=== PATIENT | male | born 1980 | race Caucasian/White ===

== ENCOUNTER 2016-11-26 21:57 | Emergency (ER) | payer BC ==
[2016-11-26 22:11] VITALS: BP 125/71; PULSE 86; TEMP 98.1; BMI 30.8
[2016-11-26] MEDS ORDERED: OXYCODONE/APAP 5/325MG COMBO TABLET PO ONE (23:18)
[2016-11-26] MEDS ORDERED: OXYCODONE/APAP 5/325MG COMBO TABLET ONE (23:21)
--- NOTE | 2016-11-27 00:04 | PDOC ---
History of Present Illness <Adriana Aj - Last Filed: 11/27/16 00:04> - General History Source: Patient Exam Limitations: No Limitations - History of Present Illness Initial Comments: 11/27/16 00:08 The patient is a 36 year old male with no significant past medical history, who presents to the emergency department with right shoulder pain s/p mechanical pain for 4 hours. The patient states that he was playing softball at 6:30 pm today when he fell and landed on his right shoulder while running to [employer]. The patient said that initially he did not have shoulder pain and continued to play but when he got home he began to have pain. The patient states that he took an ibuprofen at 9:30 pm to treat the pain with minimal relief of symptoms. The patient denies hitting his head during the fall. The patient denies any history of shoulder surgery. The patient denies fever, chills, and sweats. The patient denies nausea, vomiting, and diarrhea. The patient denies chest pain, cough, and shortness of breath. PCP: Dr. Roberth Garrett [phone] PAST SURGICAL HISTORY: Back surgery ALLERGIES: NKDA <Kamar Adkins - Last Filed: 11/27/16 00:09> - General Chief Complaint: Pain, Acute Stated Complaint: RT SHOULDER PAIN Past History - Past Medical History Other medical history: Denies - Immunization History Immunization Up to Date: No - Psycho/Social/Smoking Cessation Hx Anxiety: No Suicidal Ideation: No Smoking Status: No Smoking History: Never smoked Have you smoked in the past 12 months: No Number of Cigarettes Smoked Daily: 0 Information on smoking cessation initiated: No Hx Alcohol Use: No Drug/Substance Use Hx: No Substance Use Type: Alcohol <Adriana Aj - Last Filed: 11/27/16 00:04> <Kamar Adkins - Last Filed: 11/27/16 00:09> - Past Medical History Allergies/Adverse Reactions: Allergies Allergy/AdvReac Type Severity Reaction Status Date / Time No Known Allergies Allergy Verified 11/26/16 22:11 Home Medications: Ambulatory Orders Cyclobenzaprine HCl [Flexeril] 10 mg PO Q8H PRN #21 tablet 07/11/12 No Home Medications 0 dose .ROUTE UTDICT 07/11/12 Oxycodone HCl/Acetaminophen [Percocet 5-325 mg Tablet] 1 - 2 tab PO Q6H PRN #16 tablet 07/11/12 Ibuprofen [Motrin -] 600 mg PO TID PRN #90 tablet MDD 3 11/27/16 Review of Systems - Review of Systems Able to Perform ROS?: Yes Comments:: 11/27/16 00:08 GENERAL/CONSTITUTIONAL: No fever or chills. No weakness. HEAD, EYES, EARS, NOSE AND THROAT: No change in vision. No ear pain or discharge. No sore throat. GASTROINTESTINAL: No nausea, vomiting, diarrhea or constipation. GENITOURINARY: No dysuria, frequency, or change in urination. CARDIOVASCULAR: No chest pain or shortness of breath. RESPIRATORY: No cough, wheezing, or hemoptysis. MUSCULOSKELETAL: (+) Right shoulder pain. No neck or back pain. SKIN: No rash NEUROLOGIC: No headache, vertigo, loss of consciousness, or change in strength/ sensation. ENDOCRINE: No increased thirst. No abnormal weight change. HEMATOLOGIC/LYMPHATIC: No anemia, easy bleeding, or history of blood clots. ALLERGIC/IMMUNOLOGIC: No hives or skin allergy. <Kamar Adkins - Last Filed: 11/27/16 00:09> *Physical Exam - Vital Signs Last Vital Signs Temp Pulse Resp BP Pulse Ox 98.1 F 86 18 125/71 98 11/26/16 22:08 11/26/16 22:08 11/26/16 22:08 11/26/16 22:08 11/26/16 23:28 <Adriana Aj - Last Filed: 11/27/16 00:04> - Vital Signs Last Vital Signs Temp Pulse Resp BP Pulse Ox 98.1 F 86 18 125/71 98 11/26/16 22:08 11/26/16 22:08 11/26/16 22:08 11/26/16 22:08 11/26/16 23:28 - Physical Exam Comments: 11/27/16 00:08 GENERAL: Awake, alert, and fully oriented, in no acute distress HEAD: No signs of trauma EYES: PERRLA, EOMI, sclera anicteric, conjunctiva clear ENT: Auricles normal inspection, nares patent, Moist mucosa NECK: Normal ROM, supple, no lymphadenopathy, JVD, or masses LUNGS: Breath sounds equal, clear to auscultation bilaterally. No wheezes, and no crackles HEART: Regular rate and rhythm, normal S1 and S2, no murmurs, rubs or gallops ABDOMEN: Soft, nontender, normoactive bowel sounds. No guarding, no rebound. No masses EXTREMITIES: (+) No clavicular tenderness. Right shoulder with tenderness of anterior shoulder, full external and internal range of motion, limitation with abduction no palpable groove, right elbows and right wrist with full range of motion. n/v intact. No clubbing or cyanosis. No cords or erythema. NEUROLOGICAL: Normal speech SKIN: Warm, Dry, normal turgor, no rashes or lesions noted. <Kamar Adkins - Last Filed: 11/27/16 00:09> ED Treatment Course - RADIOLOGY Radiology Studies Ordered: Category Date Time Status SHOULDER-RIGHT [RAD] Stat Radiology 11/26/16 23:19 Taken - Medications Given in the ED: ED Medications Discontinued Medications Generic Name Dose Route Start Last Admin Trade Name Freq PRN Reason Stop Dose Admin Oxycodone/Acetaminophen 1 combo 11/26/16 23:18 11/26/16 23:20 Percocet 5/325 - PO 11/26/16 23:19 1 combo ONCE ONE Administration <Adriana Aj - Last Filed: 11/27/16 00:04> - Medications Given in the ED: ED Medications Discontinued Medications Generic Name Dose Route Start Last Admin Trade Name Freq PRN Reason Stop Dose Admin Oxycodone/Acetaminophen 1 combo 11/26/16 23:18 11/26/16 23:20 Percocet 5/325 - PO 11/26/16 23:19 1 combo ONCE ONE Administration <Kamar Adkins - Last Filed: 11/27/16 00:09> Medical Decision Making - Medical Decision Making 11/27/16 00:02 36 yo male s/p injury to right shoulder earlier today around 6 pm pt ws playing softball, fell while running to the base landed on the shoulder, c/o right sided pain. didn't hurt initially but started to hurt afterward. took motrin for pain around 9:30 pm. no new numbness or tingling. no weakness. no h/ o prior shoulder injury. pain moderate. worse with movement. no elbow or wrist injury no head injury. on exam awake alert lungs clear. heart rrr no mrg. abd soft nt. right shoulder with latera anterior ttp. pain with abduction to 45 deg. full ROM with internal and ext rotation. no groove or deformity noted. elbow / wrist FROM. distally n/ v intact. 2 + rad/ ulnar pulses. no clavicular ttp. no step off. plan : xray r/o fx. dislocation. pain control <Adriana Aj - Last Filed: 11/27/16 00:04> *DC/Admit/Observation/Transfer - Discharge Dispostion Admit: No <Adriana Aj - Last Filed: 11/27/16 00:04> - Attestations Scribe Attestion: 11/27/16 00:08 Documentation prepared by Kamar Adkins, acting as medical claims processor for Adriana Aj MD. <Kamar Adkins - Last Filed: 11/27/16 00:09> Diagnosis at time of Disposition: Shoulder strain - Discharge Dispostion Condition at time of disposition: Fair - Prescriptions Prescriptions: Ibuprofen [Motrin -] 600 mg PO TID PRN #90 tablet MDD 3 PRN Reason: Pain - Referrals Referrals: Roberth Garrett MD [Primary Care Provider] - Francisco Narayanan MD [Staff Physician] - - Patient Instructions Printed Discharge Instructions: Shoulder Sprain Additional Instructions: take ibuprofen 600 mg every 8 hours as needed for pain. follow up with orthopedics as needed. see referral for Dr Narayanan, call to schedule. you can also receive a referral from your primary doctor. you can wear sling, but not for more than 48 hours as this may lead to frozen shoulder and stiffness. ice shoulder to help reduce swelling. return for any problems or concerns.
== END 2016-11-27 00:11 | disposition home or self-care (01) ==
LOC: SUPCPDRO 21:57 → JERFT 21:57 → JER 21:57
DX: S43.491A Other sprain of right shoulder joint, initial encounter (principal); S46.811A Strain of other muscles, fascia and tendons at shoulder and upper arm level, right arm, initial encounter; W18.01XA Striking against sports equipment with subsequent fall, initial encounter; Y93.64 Activity, baseball; Y92.320 Baseball field as the place of occurrence of the external cause; Y99.8 Other external cause status
CPT/HCPCS: 73030-TC-RT; 99284-25

== ENCOUNTER → 2016-12-04 | Emergency (ER) | payer BC ==
[2016-12-04 17:14] VITALS: TEMP 98.3; BMI 33.3
--- NOTE | 2016-12-04 17:32 | PDOC ---
History of Present Illness - General History Source: Patient Exam Limitations: No Limitations - History of Present Illness Initial Comments: CHIEF COMPLAINT: 36 y/o afebrile male with no significant PMH sent in from [facility] for abdominal pain and blood in stool. HISTORY OF PRESENT ILLNESS: The patient states last night he started having abdominal pain. He describes the pain as bloating and intermittent. He states all last night he got up multiple times because he felt pressure to have a BM but all he passed was what he describes as "bloody jelly". He admits he hasn't passed any stool since last night - only the bloody jelly. He went to [facility] today to be evaluated and had a positive occult stool test and they sent him here. He denies f/c, n/v, cough, CP, SOB, back pain, hematuria, dysuria, constipation, diarrhea, smoking history, history of prior abdominal surgery, family history of abdominal or colon cancer. Vital signs on arrival are within normal limits. REVIEW OF SYSTEMS: GENERAL/CONSTITUTIONAL: No fever/chills. No weakness. No weight change. HEAD, EYES, EARS, NOSE AND THROAT: No change in vision. No ear pain or discharge. No sore throat. CARDIOVASCULAR: No chest pain or shortness of breath. RESPIRATORY: No cough, wheezing, or hemoptysis. GASTROINTESTINAL: +abdominal cramping and bloody "jelly" stool. No nausea, vomiting. GENITOURINARY: No dysuria, frequency, or change in urination. MUSCULOSKELETAL: No joint or muscle swelling or pain. No neck or back pain. SKIN: No rash or easy bruising. NEUROLOGIC: No headache, vertigo, loss of consciousness, or loss of sensation. PHYSICAL EXAM: GENERAL: The patient is awake, alert, and fully oriented, in no acute distress. He is a muscular, well appearing, ambulatory male in NAD or obvious discomfort. HEAD: Normal with no signs of trauma. ENT: Pupils equal, round and reactive to light, extraocular movements intact, sclera anicteric, conjunctiva clear. Neck supple. LUNGS: Clear to auscultation bilaterally. Normal excursion. No respiratory distress or use of accessory muscles. CV: RRR, S1/S2, no MRG. Cap refill < 2 sec. ABDOMEN: Soft, non-distended, some TTP of RLQ without rebound, guarding or rigidity. Negative psoas, obturator and heel jar sign. RECTAL: No hemorrhoids appreciated. No masses felt on internal exam. Very faint blood seen around anus and from rectal exam. EXTREMITIES: Normal range of motion, no edema. NEUROLOGICAL: Normal speech, normal gait. CN II-XII grossly intact. PSYCH: Normal mood, normal affect. SKIN: Warm, dry, normal turgor, no rashes or lesions noted. <Nitza Ley - Last Filed: 12/04/16 17:48> <Sia Brown - Last Filed: 12/04/16 22:58> - General Chief Complaint: Pain Stated Complaint: PCP REFERRAL Time Seen by Provider: 12/04/16 17:24 Past History - Past Medical History Other medical history: NONE - Immunization History Immunization Up to Date: No - Psycho/Social/Smoking Cessation Hx Anxiety: No Suicidal Ideation: No Smoking Status: No Smoking History: Never smoked Have you smoked in the past 12 months: No Number of Cigarettes Smoked Daily: 0 Hx Alcohol Use: Yes (SOCIAL) Drug/Substance Use Hx: No Substance Use Type: None <Nitza Ley - Last Filed: 12/04/16 17:48> <Sia Brown - Last Filed: 12/04/16 22:58> - Past Medical History Allergies/Adverse Reactions: Allergies Allergy/AdvReac Type Severity Reaction Status Date / Time No Known Allergies Allergy Verified 12/04/16 17:14 Home Medications: Ambulatory Orders Famotidine [Pepcid -] 40 mg PO DAILY #30 tablet 12/04/16 Ondansetron [Zofran Odt -] 4 mg SL Q6H PRN #24 od.tablet 12/04/16 Oxycodone HCl/Acetaminophen [Percocet 5-325 mg Tablet] 1 tab PO Q6H PRN #28 tablet MDD 4 tab 12/04/16 *Physical Exam - Vital Signs Last Vital Signs Temp Pulse Resp BP Pulse Ox 98.3 F 62 20 145/70 98 12/04/16 17:11 12/04/16 17:11 12/04/16 17:11 12/04/16 17:11 12/04/16 17:11 <Nitza Ley - Last Filed: 12/04/16 17:48> - Vital Signs Last Vital Signs Temp Pulse Resp BP Pulse Ox 98.3 F 62 20 145/70 98 12/04/16 17:11 12/04/16 17:11 12/04/16 17:11 12/04/16 17:11 12/04/16 17:11 <Sia Brown - Last Filed: 12/04/16 22:58> ED Treatment Course - LABORATORY CBC & Chemistry Diagram: 12/04/16 18:10 12/04/16 18:10 - ADDITIONAL ORDERS Additional order review: Laboratory Results 12/04/16 12/04/16 12/04/16 18:17 18:10 18:10 INR 1.20 H Sodium Potassium Chloride Carbon Dioxide Anion Gap BUN Creatinine Creat Clearance w eGFR Random Glucose Lactic Acid Calcium Total Bilirubin AST ALT Alkaline Phosphatase Total Protein Albumin Urine Color Ltyellow Urine Appearance Clear Urine pH 5.0 Urine Protein Negative Urine Glucose (UA) Negative Urine Ketones Negative Urine Blood Negative Urine Nitrite Negative Urine Bilirubin Negative Urine Urobilinogen Negative Ur Leukocyte Esterase Negative Stool Occult Blood Negative Blood Type A NEGATIVE Antibody Screen Negative 12/04/16 12/04/16 18:10 18:10 INR Sodium 141 Potassium 4.0 Chloride 105 Carbon Dioxide 26 Anion Gap 10 BUN 16 Creatinine 0.9 Creat Clearance w eGFR > 60 Random Glucose 94 Lactic Acid 1.3 Calcium 9.2 Total Bilirubin 0.8 AST 26 ALT 40 Alkaline Phosphatase 51 Total Protein 7.3 Albumin 4.4 Urine Color Urine Appearance Urine pH Urine Protein Urine Glucose (UA) Urine Ketones Urine Blood Urine Nitrite Urine Bilirubin Urine Urobilinogen Ur Leukocyte Esterase Stool Occult Blood Blood Type Antibody Screen 12/04/16 18:10 RBC 4.96 MCV 88.6 MCHC 34.2 RDW 13.6 MPV 9.0 Neutrophils % 76.0 Lymphocytes % 16.3 Monocytes % 6.5 Eosinophils % 0.8 Basophils % 0.4 <Sia Brown - Last Filed: 12/04/16 22:58> Medical Decision Making - Medical Decision Making A/P: 36 y/o afebrile male with abdominal bloating, and multiple episodes of bloody "jelly" like stool since last night. He had a positive occult stool at [facility] this afternoon. Plan is as follows: 1. EKG 2. CXR 3. Labs 4. Stool occult 5. CT scan abd/pelvis I am signing this patient out to my colleague: SHARON Brown In brief, this patient is being seen in the ED for a chief complaint of: abd pain with multiple episodes of bloody "jelly" like stool I have completed the initial assessment interview note and have ordered: labs, EKG, cxr, CT scan abd/pelvis, stool occult I have reviewed the following results: none Pending results are: all Plan for disposition is as follows: Pending <Nitza Ley - Last Filed: 12/04/16 17:48> - Medical Decision Making 12/04/16 22:55 CALL PLACED TO PCP, NO RETURN CALL IN 1.5 HOURS. PATIENT STABLE FOR D/C. PATIENT TEACHING ON CLOSE FOLLOW UP AND IMPORTANCE OF GI CONSULT. PATIENT AGREED WITH PLAN, AND AGREED TO RETURN IF SYMPTOMS WORSEN, OR IF HE EXPERIENCED ANY SYMPTOMS I HAVE LAID OUT IN D/C INSTRUCTIONS. PATIENT D/C TO HOME ON ZOFRAN , PEPCID, AND PERCOCET. <Sia Brown - Last Filed: 12/04/16 22:58> *DC/Admit/Observation/Transfer <Nitza Ley - Last Filed: 12/04/16 17:48> - Discharge Dispostion Admit: No <Sia Brown - Last Filed: 12/04/16 22:58> Diagnosis at time of Disposition: Bloody stools - Discharge Dispostion Disposition: HOME Condition at time of disposition: Stable - Prescriptions Prescriptions: Famotidine [Pepcid -] 40 mg PO DAILY #30 tablet Oxycodone HCl/Acetaminophen [Percocet 5-325 mg Tablet] 1 tab PO Q6H PRN #28 tablet MDD 4 tab PRN Reason: Severe Pain Ondansetron [Zofran Odt -] 4 mg SL Q6H PRN #24 od.tablet PRN Reason: Nausea - Referrals Referrals: Roberth Garrett MD [Primary Care Provider] - Elie Merrill MD [Staff Physician] - - Patient Instructions Printed Discharge Instructions: DI for Rectal Bleeding, DI for Crohn's Disease Additional Instructions: FOLLOW UP WITH DR. MERRILL (GASTROENTEROLOGY) THIS WEEK. CALL TO SCHEDULE APPOINTMENT. TAKE MEDICATIONS PRESCRIBED. DO NOT DRIVE, DRINK ALCOHOL, OR OPERATE HEAVY MACHINERY WHILE TAKING PERCOCET. DRINK PLENTY FLUIDS AND CONSUME FOODS NORMAL. IF YOUR SYMPTOMS WORSEN, SUCH DIZZINESS, LIGHTHEADEDNESS, INCREASE BLEEDING (POURING LOOSE STOOL), CHEST PAINS, SHORTNESS OF BREATH, OR ANY OTHER COMPLAINTS RETURN FOR FURTHER EVALUATION. AVOID ALCOHOL, ASPIRIN, IBUPROFEN UNTIL FURTHER NOTICE. Print Language: SAUDI ARABIAN - Post Discharge Activity Work/School Note: Back to Work
[2016-12-04 18:31] LABS: BASOPHIL 0.4 % (0-2.0); EOSINOPHIL 0.8 % (0-4.5); MCH 30.3 pg (25.7-33.7); MCHC 34.2 g/dl (32.0-35.9); MEAN CELL VOLUME 88.6 fl (80-96); PLATELET COUNT 176 K/MM3 (134-434); RDW 13.6 % (11.9-15.9); WHITE BLOOD COUNT 9.3 K/mm3 (4.0-10.0)
[2016-12-04 18:35] LABS: STOOL FOR OCCULT BLOOD NEGATIVE (NEGATIVE); URINE APPEARANCE CLEAR; URINE BILIRUBIN NEGATIVE (NEGATIVE); URINE BLOOD NEGATIVE (NEGATIVE); URINE COLOR LTYELLOW; URINE GLUCOSE (UA) NEGATIVE (NEGATIVE); URINE KETONE NEGATIVE (NEGATIVE); URINE LEUK ESTERASE NEGATIVE (NEGATIVE); URINE NITRITE NEGATIVE (NEGATIVE); URINE PROTEIN NEGATIVE (NEGATIVE); URINE UROBILINOGEN NEGATIVE E.U./dl (0.2-1.0)
[2016-12-04 18:42] LABS: INR 1.2 (0.82-1.09); PROTHROMBIN TIME (PATIENT) 13.3 SEC (9.98-11.88)
[2016-12-04 19:06] LABS: ALBUMIN 4.4 g/dl (3.4-5.0); ALK PHOS 51 U/L (45-117); ANION GAP 10 (8-16); BILIRUBIN,TOTAL 0.8 mg/dL (0.2-1.0); CALCIUM 9.2 mg/dL (8.5-10.1); CO2 26 mmol/L (21-32); CREATININE 0.9 mg/dL (0.7-1.3); GLUCOSE,RANDOM 94 mg/dL (74-106); SGOT/AST 26 U/L (15-37); SGPT/ALT 40 U/L (12-78); TOT PROT 7.3 g/dl (6.4-8.2)
[2016-12-04 23:35] VITALS: BP 130/84; PULSE 71
--- NOTE | 2016-12-05 17:26 | EKG ---
Test Reason : Blood Pressure : / mmHG Vent. Rate : 065 BPM Atrial Rate : 065 BPM P-R Int : 178 ms QRS Dur : 106 ms QT Int : 442 ms P-R-T Axes : 046 052 021 degrees QTc Int : 459 ms NORMAL SINUS RHYTHM POSSIBLE LEFT ATRIAL ENLARGEMENT BORDERLINE ECG NO PREVIOUS ECGS AVAILABLE Confirmed by KHANH CULVER MD ([id number]) on 12/05/2016 5:25:44 PM Referred By: Confirmed By:KHANH CULVER MD
== END | disposition home or self-care (01) ==
LOC: JER 17:08
DX: K92.1 Melena (principal)
CPT/HCPCS: 36415; 74177-TC; 80053; 81003; 82272; 83605; 84481; 85025; 85610; 86850; 86900; 86901; 87040; 87086; 93005; 93010; 99282-25

== ENCOUNTER 2022-04-19 17:25 | Emergency (ER) | payer BC ==
[2022-04-19 18:08] VITALS: BP 150/82; PULSE 84; RESP 18; TEMP 97.8; BMI 34.2
[2022-04-19 21:39] LABS: BASO % 0.9 % (0-2.0); EOS % 0.5 % (0-4.5); HEMATOCRIT 43.6 % (35.4-49); HEMOGLOBIN 15.1 GM/dL (11.7-16.9); LYMPH % 27.3 % (8-40); MCH 30.9 pg (25.7-33.7); MCHC 34.5 g/dl (32.0-35.9); MEAN CELL VOLUME 89.5 fl (80-96); MEAN PLT VOLUME 7.7 fl (7.5-11.1); MONO % 5.8 % (3.8-10.2); NEUT % 65.5 % (42.8-82.8); PLATELET COUNT 181 10^3/uL (134-434); RBC 4.87 M/mm3 (4.00-5.60); RDW 13.1 % (11.9-15.9); WHITE BLOOD COUNT 7.1 K/mm3 (4.0-10.0)
[2022-04-19 21:58] LABS: INR 1.2 (0.83-1.09); PROTHROMBIN TIME (PATIENT) 13.8 SEC (9.7-13.0)
[2022-04-19 22:00] LABS: CALCIUM 9.1 mg/dL (8.5-10.1)
[2022-04-19 22:01] LABS: BLOOD UREA NITROGEN 15.7 mg/dL (7-18)
[2022-04-19 22:03] LABS: CREATININE 0.9 mg/dL (0.55-1.3)
[2022-04-19 22:05] LABS: BILIRUBIN,TOTAL 0.7 mg/dL (0.2-1); TOT PROT 7.2 g/dl (6.4-8.2)
[2022-04-19] MEDS ORDERED: ENOXAPARIN NA (PORCINE) 100 MG/1 ML DISP.SYRIN SQ ONE ×2 (22:30→22:45)
== END 2022-04-19 22:56 | disposition home or self-care (01) ==
LOC: JER 17:25
DX: I82.452 Acute embolism and thrombosis of left peroneal vein (principal)
CPT/HCPCS: 36415; 80053; 85025; 85610; 99283-25

== ENCOUNTER 2022-04-21 12:45 | Inpatient (IN) | payer BC ==
[2022-04-21 13:02] VITALS: BMI 34.2
[2022-04-21] MEDS ORDERED: SODIUM CHLORIDE 1,000 ML IV STA (13:52)
[2022-04-21 15:23] LABS: BASO % 0.5 % (0-2.0); EOS % 0.5 % (0-4.5); HEMATOCRIT 44.1 % (35.4-49); HEMOGLOBIN 15.1 GM/dL (11.7-16.9); LYMPH % 16.6 % (8-40); MCH 30.6 pg (25.7-33.7); MCHC 34.2 g/dl (32.0-35.9); MEAN CELL VOLUME 89.6 fl (80-96); MEAN PLT VOLUME 8.3 fl (7.5-11.1); MONO % 5.4 % (3.8-10.2); PLATELET COUNT 208 10^3/uL (134-434); RBC 4.93 M/mm3 (4.00-5.60); WHITE BLOOD COUNT 6.4 K/mm3 (4.0-10.0)
[2022-04-21 15:29] LABS: INR 1.56 (0.83-1.09)
[2022-04-21 15:32] LABS: ACTIVATED PTT 34.6 SECONDS (25.2-36.5)
[2022-04-21 15:33] LABS: PH,URINE 5.5 (5.0-8.0); URINE APPEARANCE CLEAR; URINE BILIRUBIN NEGATIVE (NEGATIVE); URINE COLOR YELLOW; URINE GLUCOSE (UA) NEGATIVE (NEGATIVE); URINE KETONE TRACE (NEGATIVE); URINE LEUK ESTERASE NEGATIVE (NEGATIVE); URINE NITRITE NEGATIVE (NEGATIVE); URINE PROTEIN NEGATIVE (NEGATIVE); URINE UROBILINOGEN 0.2 mg/dL (0.2-1.0)
[2022-04-21 16:03] LABS: ALBUMIN 4.1 g/dl (3.4-5.0); BILIRUBIN,TOTAL 0.8 mg/dL (0.2-1); BLOOD UREA NITROGEN 18.4 mg/dL (7-18); CALCIUM 9.3 mg/dL (8.5-10.1); CREATININE 0.9 mg/dL (0.55-1.3); MAGNESIUM 2.6 mg/dL (1.8-2.4); TOT PROT 7.4 g/dl (6.4-8.2)
[2022-04-21] MEDS ORDERED: HEPARIN NA (PORCINE) 5,000 UNITS/ML 1ML VIAL IVPUSH ONE (17:55)
[2022-04-21] MEDS ORDERED: HEPARIN NA (PORCINE) 5,000 UNITS/ML 1ML VIAL IVPUSH PRN ×2 (18:04)
[2022-04-21] MEDS ORDERED: HEPARIN INFUSION - 25,000 UNITS/500 ML INFUS.BAG IVPB ONE (18:16)
[2022-04-21] MEDS ORDERED: HEPARIN NA (PORCINE) 5,000 UNITS/ML 1ML VIAL ONE (18:16)
[2022-04-21] MEDS: HEPARIN INFUSION - 25,000 UNITS/500 ML INFUS.BAG IVPB SCH (18:29)
[2022-04-22] MEDS: ACETAMINOPHEN 500 MG TABLET (FP) PO PRN (01:49)
[2022-04-22 08:03] LABS: BASO % 0.6 % (0-2.0); EOS % 1.6 % (0-4.5); HEMATOCRIT 42.1 % (35.4-49); HEMOGLOBIN 14.5 GM/dL (11.7-16.9); LYMPH % 33.9 % (8-40); MCH 30.8 pg (25.7-33.7); MCHC 34.4 g/dl (32.0-35.9); MEAN CELL VOLUME 89.4 fl (80-96); MEAN PLT VOLUME 7.8 fl (7.5-11.1); MONO % 6.8 % (3.8-10.2); NEUT % 57.1 % (42.8-82.8); PLATELET COUNT 205 10^3/uL (134-434); RBC 4.71 M/mm3 (4.00-5.60); RDW 12.7 % (11.9-15.9)
[2022-04-22 08:40] LABS: ALBUMIN 3.7 g/dl (3.4-5.0); BLOOD UREA NITROGEN 12.8 mg/dL (7-18)
[2022-04-22 08:41] LABS: CALCIUM 9.3 mg/dL (8.5-10.1)
[2022-04-22 08:42] LABS: MAGNESIUM 2.6 mg/dL (1.8-2.4)
[2022-04-22 08:43] LABS: CREATININE 0.9 mg/dL (0.55-1.3); PHOSPHOROUS 3.6 mg/dL (2.5-4.9)
[2022-04-22 08:44] LABS: BILIRUBIN,TOTAL 0.9 mg/dL (0.2-1); TOT PROT 6.7 g/dl (6.4-8.2)
[2022-04-22] MEDS: HEPARIN INFUSION - 25,000 UNITS/500 ML INFUS.BAG IVPB SCH ×3 (09:46→18:30)
[2022-04-23] MEDS: ACETAMINOPHEN 500 MG TABLET (FP) PO PRN (02:26)
[2022-04-23 08:57] LABS: HEMOGLOBIN 14.8 GM/dL (11.7-16.9); MCH 31.1 pg (25.7-33.7); MCHC 35.3 g/dl (32.0-35.9); MEAN CELL VOLUME 88.2 fl (80-96); MEAN PLT VOLUME 7.9 fl (7.5-11.1); PLATELET COUNT 221 10^3/uL (134-434); RBC 4.76 M/mm3 (4.00-5.60); RDW 12.7 % (11.9-15.9); WHITE BLOOD COUNT 4.8 K/mm3 (4.0-10.0)
[2022-04-23 09:59] LABS: BLOOD UREA NITROGEN 14.9 mg/dL (7-18); MAGNESIUM 2.4 mg/dL (1.8-2.4)
[2022-04-23 10:02] LABS: CREATININE 0.9 mg/dL (0.55-1.3); PHOSPHOROUS 3.2 mg/dL (2.5-4.9)
[2022-04-23 10:03] LABS: BILIRUBIN,TOTAL 0.6 mg/dL (0.2-1); TOT PROT 7.2 g/dl (6.4-8.2)
[2022-04-23] MEDS: HEPARIN INFUSION - 25,000 UNITS/500 ML INFUS.BAG IVPB SCH ×2 (10:35→19:19)
[2022-04-23 13:16] LABS: N-TERMINAL BNP 15.5 pg/ml (5-125)
[2022-04-24] MEDS: ACETAMINOPHEN 500 MG TABLET (FP) PO PRN (01:38)
[2022-04-24] MEDS: HEPARIN INFUSION - 25,000 UNITS/500 ML INFUS.BAG IVPB SCH ×2 (06:03→17:55)
[2022-04-24 09:21] LABS: HEMATOCRIT 44.2 % (35.4-49); HEMOGLOBIN 15.2 GM/dL (11.7-16.9); MCH 30.8 pg (25.7-33.7); MCHC 34.5 g/dl (32.0-35.9); MEAN CELL VOLUME 89.2 fl (80-96); MEAN PLT VOLUME 8.1 fl (7.5-11.1); PLATELET COUNT 233 10^3/uL (134-434); RBC 4.96 M/mm3 (4.00-5.60); RDW 12.8 % (11.9-15.9); WHITE BLOOD COUNT 4.7 K/mm3 (4.0-10.0)
[2022-04-24 10:03] LABS: BLOOD UREA NITROGEN 11.3 mg/dL (7-18); CALCIUM 9.4 mg/dL (8.5-10.1)
[2022-04-24 10:05] LABS: MAGNESIUM 2.3 mg/dL (1.8-2.4)
[2022-04-24 10:06] LABS: PHOSPHOROUS 3.3 mg/dL (2.5-4.9)
[2022-04-24 10:09] LABS: TOT PROT 7.2 g/dl (6.4-8.2)
[2022-04-25 07:41] LABS: HEMATOCRIT 41.2 % (35.4-49); HEMOGLOBIN 14.4 GM/dL (11.7-16.9); MCH 31.2 pg (25.7-33.7); MCHC 34.9 g/dl (32.0-35.9); MEAN CELL VOLUME 89.3 fl (80-96); MEAN PLT VOLUME 8.3 fl (7.5-11.1); PLATELET COUNT 227 10^3/uL (134-434); RBC 4.62 M/mm3 (4.00-5.60); RDW 12.8 % (11.9-15.9); WHITE BLOOD COUNT 4.7 K/mm3 (4.0-10.0)
[2022-04-25 07:48] LABS: ALBUMIN 3.8 g/dl (3.4-5.0); BLOOD UREA NITROGEN 11.3 mg/dL (7-18); CALCIUM 9.1 mg/dL (8.5-10.1); MAGNESIUM 2.4 mg/dL (1.8-2.4)
[2022-04-25 07:51] LABS: BILIRUBIN,TOTAL 0.8 mg/dL (0.2-1); TOT PROT 6.8 g/dl (6.4-8.2)
[2022-04-25] MEDS ORDERED: HEPARIN INFUSION - 25,000 UNITS/500 ML INFUS.BAG IVPB SCH (09:42)
[2022-04-25] MEDS ORDERED: HEPARIN NA (PORCINE) 5,000 UNITS/ML 1ML VIAL IVPUSH PRN (09:42)
[2022-04-25] MEDS ORDERED: ACETAMINOPHEN 500 MG TABLET (FP) PO PRN (09:42)
[2022-04-26] MEDS: HEPARIN NA (PORCINE) 5,000 UNITS/ML 1ML VIAL IVPUSH PRN ×2 (03:17→09:04)
[2022-04-26 07:44] LABS: HEMATOCRIT 42.3 % (35.4-49); HEMOGLOBIN 14.7 GM/dL (11.7-16.9); MCH 31.1 pg (25.7-33.7); MCHC 34.8 g/dl (32.0-35.9); MEAN CELL VOLUME 89.3 fl (80-96); MEAN PLT VOLUME 8.9 fl (7.5-11.1); PLATELET COUNT 221 10^3/uL (134-434); RBC 4.74 M/mm3 (4.00-5.60); RDW 12.9 % (11.9-15.9); WHITE BLOOD COUNT 5.1 K/mm3 (4.0-10.0)
[2022-04-26 08:12] LABS: BILIRUBIN,TOTAL 0.7 mg/dL (0.2-1); BLOOD UREA NITROGEN 12.6 mg/dL (7-18); CALCIUM 9.3 mg/dL (8.5-10.1); TOT PROT 7.1 g/dl (6.4-8.2)
[2022-04-26 08:14] LABS: MAGNESIUM 2.5 mg/dL (1.8-2.4); PHOSPHOROUS 4.2 mg/dL (2.5-4.9)
[2022-04-26 15:31] VITALS: BP 125/77; PULSE 75; RESP 20; TEMP 98.2
[2022-04-26] MEDS ORDERED: ENOXAPARIN NA (PORCINE) 120 MG/0.8 ML DISP.SYRIN SQ ONE (17:30)
== END 2022-04-26 18:13 | disposition home or self-care (01) | DRG 176 ==
LOC: JER 12:45 → JERBED 17:42 → J7W 21:25 → J4W 04-24 20:58
PROVIDERS: ADMIT Internal Medicine; ATTEND Internal Medicine
DX: I26.99 Other pulmonary embolism without acute cor pulmonale (principal); I82.452 Acute embolism and thrombosis of left peroneal vein; I82.432 Acute embolism and thrombosis of left popliteal vein; R91.1 Solitary pulmonary nodule; Z86.16 Personal history of COVID-19; E66.9 Obesity, unspecified; Z68.34 Body mass index [BMI] 34.0-34.9, adult
CPT/HCPCS: 36415; 71045-TC-FY; 71046-TC-FY; 71275-TC; 80053; 81003; 82272; 83735; 83880; 84100; 84484; 85025; 85027; 85610; 85730; 93005; 93010; 93306-TC; 93970-TC; 94010; 99285-25; C9803-CS; J1644; U0003; U0005

== ENCOUNTER 2022-10-28 14:13 | Emergency (ER) | payer BC ==
[2022-10-28 14:36] VITALS: RESP 18; BMI 30.8
[2022-10-28 16:06] LABS: BASO % 1.2 % (0-2.0); EOS % 1.1 % (0-4.5); HEMATOCRIT 42.6 % (35.4-49); HEMOGLOBIN 14.9 GM/dL (11.7-16.9); LYMPH % 33.7 % (8-40); MCHC 34.9 g/dl (32.0-35.9); MEAN CELL VOLUME 88.8 fl (80-96); MEAN PLT VOLUME 9.5 fl (7.5-11.1); MONO % 5.9 % (3.8-10.2); NEUT % 58.1 % (42.8-82.8); PLATELET COUNT 186 10^3/uL (134-434); RDW 13.4 % (11.9-15.9); WHITE BLOOD COUNT 4.5 K/mm3 (4.0-10.0)
[2022-10-28 16:19] LABS: INR 1.43 (0.83-1.09); PROTHROMBIN TIME (PATIENT) 16.5 SEC (9.7-13.0)
[2022-10-28 16:21] LABS: POTASSIUM 4.5 mmol/L (3.5-5.1)
[2022-10-28 16:22] LABS: ACTIVATED PTT 32.7 SECONDS (25.2-36.5); CALCIUM 9.2 mg/dL (8.5-10.1)
[2022-10-28 16:23] LABS: ALBUMIN 4.3 g/dl (3.4-5.0); BLOOD UREA NITROGEN 15.2 mg/dL (7-18)
[2022-10-28 16:26] LABS: CREATININE 0.7 mg/dL (0.55-1.3)
[2022-10-28 16:28] LABS: BILIRUBIN,TOTAL 0.8 mg/dL (0.2-1); TOT PROT 7.1 g/dl (6.4-8.2)
[2022-10-28 19:28] VITALS: BP 127/74; PULSE 60; TEMP 97.2
== END 2022-10-28 20:45 | disposition home or self-care (01) ==
LOC: JER 14:13
DX: R07.89 Other chest pain (principal)
CPT/HCPCS: 36415; 71045-TC-FY; 71275-TC; 80053; 84484; 85025; 85610; 85730; 93005; 93010; 99285-25; Q9967